=== PATIENT | male | born 1990 | race Caucasian/White ===

== ENCOUNTER 2017-05-06 20:40 | Emergency (ER) | payer OTHER ==
--- NOTE | 2017-05-06 20:56 | ED ---
Upper Extremity Pain - HPI Summary HPI Summary: 26 yr old male with complaint of right middle mp joint pain. He punched a truck 45 minutes ago. He was mad and hit the truck. pain is moderate. he is able to open and close the hand. No other complaints. - History of Current Complaint Chief Complaint: UCUpperExtremity Stated Complaint: RIGHT HAND INJURY Time Seen by Provider: 05/06/17 20:50 - Allergies/Home Medications Allergies/Adverse Reactions: Allergies Allergy/AdvReac Type Severity Reaction Status Date / Time No Known Allergies Allergy Verified 05/06/17 20:53 PMH/Surg Hx/FS Hx/Imm Hx - Surgical History Hx Anesthesia Reactions: No Infectious Disease History: Denies: Traveled Outside the [place] in Last 30 Days - Family History Known Family History: Positive: None - Social History Alcohol Use: Rare Substance Use Type: Reports: None Smoking Status (MU): Heavy Every Day Tobacco Smoker Type: Smokeless Tobacco Amount Used/How Often: 1 can per day Length of Time of Smoking/Using Tobacco: since age 15 Have You Smoked in the Last Year: Yes Review of Systems Positive: Other All Other Systems Reviewed And Are Negative: Yes Physical Exam Triage Information Reviewed: Yes Vital Signs Reviewed: Yes Appearance: Positive: Well-Appearing, No Pain Distress Skin: Positive: Warm Neck: Positive: Nontender Respiratory/Lung Sounds: Positive: Clear to Auscultation Cardiovascular: Positive: Normal, RRR. Negative: Murmur Musculoskeletal: Positive: Strength/ROM Intact, Other - STS over the 3rd MP joint area. No crepetance. No other gross deformity. Neurological: Positive: Sensory/Motor Intact, Alert, Oriented to Person Place, Time, CN Intact II-III Psychiatric: Positive: Normal - Ebenezer Coma Scale Best Eye Response: 4 - Spontaneous Best Motor Response: 6 - Obeys Commands Best Verbal Response: 5 - Oriented Diagnostics - Laboratory Lab Statement: Any lab studies that have been ordered have been reviewed, and results considered in the medical decision making process. - Radiology hand Xray Interpretation: No Acute Changes Radiology Interpretation Completed By: Radiologist Course/Dx - Course Course Of Treatment: 26 yr old male with contusion to the hand. DC good condition. - Diagnoses Provider Diagnoses: Contusion, hand Discharge - Discharge Plan Condition: Good Disposition: HOME Prescriptions: Ibuprofen TAB* [Motrin TAB* 600 MG] 600 mg PO Q6H PRN #14 tab PRN Reason: Pain Patient Education Materials: Contusion in Adults (ED) Referrals: No Primary Care Phys,NOPCP [Primary Care Provider] - [facility] [place] [facility]IAN REFERRAL [Outside]
[2017-05-06 20:57] VITALS: BP 134/82
--- NOTE | 2017-05-06 21:31 | RAD ---
INDICATION: Soft tissue swelling and pain of the second metacarpal phalangeal joint after punching a truck COMPARISON: None. TECHNIQUE: 4 views of the right hand were obtained. FINDINGS: The adequately corticated bones are in normal alignment. No significant focal osseous abnormality or fracture is seen. Joint spaces appear maintained. IMPRESSION: Normal right hand radiograph. If the patient's symptoms persist, follow-up imaging is recommended.
== END 2017-05-06 21:46 | disposition home or self-care (01) ==
LOC: UCCORT 20:40
DX: S60.221A Contusion of right hand, initial encounter (principal); W22.8XXA Striking against or struck by other objects, initial encounter; Y93.9 Activity, unspecified; Y92.9 Unspecified place or not applicable; F17.220 Nicotine dependence, chewing tobacco, uncomplicated
CPT/HCPCS: 99212; G0463

== ENCOUNTER 2017-06-01 18:34 | Emergency (ER) | payer OTHER ==
[2017-06-01 21:10] VITALS: BP 125/73
[2017-06-01] MEDS ORDERED: Tetracaine 0.5% OPTH.SOL 4 ML* 1 DROP BTL ONE (21:13)
[2017-06-01] MEDS ORDERED: Fluorescein Sod TOPICAL 0.6* 0.6 MG TEST OPHTHALMIC ONE ×2 (21:13→21:14)
[2017-06-01] MEDS ORDERED: Tetracaine 0.5% OPTH.SOL 4 ML* 1 DROP BTL LEFT EYE ONE (21:13)
--- NOTE | 2017-06-01 21:49 | ED ---
Throat Pain/Nasal Congestion - HPI Summary HPI Summary: 26 yr old with discomfort left eye. He had a FB body metalic removed last week at [facility] [place]. 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 He states he can' t get into an eye doctor. He feels like something on his cornea still. He did not go to ER because they were busy. No blur vision. - History of Current Complaint Chief Complaint: UCEye Time Seen by Provider: 06/01/17 20:57 - Allergies/Home Medications Allergies/Adverse Reactions: Allergies Allergy/AdvReac Type Severity Reaction Status Date / Time No Known Allergies Allergy Verified 06/01/17 21:10 Home Medications: Home Medications NK [No Home Medications Reported] 06/01/17 [History Confirmed 06/01/17] PMH/Surg Hx/FS Hx/Imm Hx - Surgical History Hx Anesthesia Reactions: No Infectious Disease History: No Infectious Disease History: Denies: Traveled Outside the [place] in Last 30 Days - Family History Known Family History: Positive: None - Social History Alcohol Use: Rare Substance Use Type: Reports: None Smoking Status (MU): Heavy Every Day Tobacco Smoker Type: Smokeless Tobacco Amount Used/How Often: 1 can per day Length of Time of Smoking/Using Tobacco: since age 15 Have You Smoked in the Last Year: Yes Review of Systems Constitutional: Negative Positive: Other - FB sensation left eye All Other Systems Reviewed And Are Negative: Yes Physical Exam Triage Information Reviewed: Yes Vital Signs On Initial Exam: Initial Vitals Temp Pulse Resp BP Pulse Ox 98.4 F 71 15 125/73 98 06/01/17 21:01 06/01/17 21:01 06/01/17 21:01 06/01/17 21:01 06/01/17 21:01 Vital Signs Reviewed: Yes Appearance: Positive: Well-Appearing, No Pain Distress Skin: Positive: Warm, Skin Color Reflects Adequate Perfusion Eyes: Positive: EOMI, VLADIMIR, Other: - wood lamp with flourocein did not show uptake. i do not appreciate a corneal FB. ENT: Positive: Pharynx normal. Negative: Nasal congestion Neck: Positive: Supple Respiratory/Lung Sounds: Positive: Clear to Auscultation Neurological: Positive: Sensory/Motor Intact, Alert, Oriented to Person Place, Time, CN Intact II-III - Ebenezer Coma Scale Best Eye Response: 4 - Spontaneous Best Motor Response: 6 - Obeys Commands Best Verbal Response: 5 - Oriented Coma Scale Total: 15 Diagnostics - Vital Signs Vital Signs Temp Pulse Resp BP Pulse Ox 06/01/17 21:01 98.4 F 71 15 125/73 98 - Laboratory Lab Statement: Any lab studies that have been ordered have been reviewed, and results considered in the medical decision making process. EENT Course/Dx - Course Course Of Treatment: 26 yr old with left eye discomfort. I recommend he go to [facility] ER for eye evaluation now. He can get slit lamp and optho care this evening there. He verbalized he will drive there now with significant other. - Diagnoses Provider Diagnoses: Sensation of foreign body in eye Discharge - Discharge Plan Condition: Good Disposition: HOME Patient Education Materials: Eye Foreign Body (ED) Referrals: No Primary Care Phys,NOPCP [Primary Care Provider] - Additional Instructions: You need to go to [facility] ER in [place] for an Eye evaluation tonight. You need an exam that cannot be done in urgent care to clear your eye of injury and other issues. Do not delay going. This is the number for the eye center in [place] as well. [facility] 3.0 2 reviews Doctor in [place], [place] DirectionsWebsite Address: [address] [place] [address] Closed now
== END 2017-06-01 21:49 | disposition home or self-care (01) ==
LOC: UCCORT 18:34
DX: H57.12 Ocular pain, left eye (principal); F17.220 Nicotine dependence, chewing tobacco, uncomplicated
CPT/HCPCS: 99212; A9270-GY; G0463